=== PATIENT | female | born 1980 | race Caucasian/White ===

== ENCOUNTER 2017-01-26 22:52 | Inpatient (IN) | payer OTHER ==
[~2017-01-26] VITALS: Ht 172.7 cm; Wt 79.4 kg
[~2017-01-26 22:52] MED LIST: ASPIR 8181 MG PO; COUMADIN10 MG PO; DIGITEK250 MCG PO; DILTIAZEM 24HR180 M1 PO; DIVALPROEX SOD250 MG PO; ELIQUIS5 MG PO; FLAGYL500 MG PO; FLUOXETINE HCL20 MG PO; GLUCOPHAGE 850850 MG PO; HUMULIN R100 UNIT/1 INJ; HYDROXYZINE PAM25 MG PO; LASIX40 MG PO; LEVEMIR100 UNIT/1 SQ; LIPITOR TAB 2020 MG PO; LISINOPRIL5 MG PO; METOPROLOL TART50 MG PO; NEURONTIN 300300 MG PO; NITROGLYCERIN0.4 MG SL; OMEPRAZOLE40 MG PO; PHENYTOIN SODI200 MG PO; TOPAMAX100 MG PO; TOPROL XL50 MG PO
[2017-01-26] MEDS ORDERED: DILANTIN 100 M100 MG PO (23:57)
[2017-01-26] MEDS ORDERED: DIVALPROEX SOD500 MG PO (23:58)
[2017-01-26] MEDS ORDERED: NEURONTIN 300300 MG PO (23:58)
[2017-01-26] MEDS ORDERED: LASIX40 MG PO (23:59)
[2017-01-27] MEDS ORDERED: GLUCOPHAGE 850850 MG PO
[2017-01-27] MEDS ORDERED: NITROFURANTOIN100 MG PO (00:01)
[2017-01-27] MEDS ORDERED: NITROSTAT0.4 MG SL (00:02)
[2017-01-27] MEDS ORDERED: PROZAC20 MG PO (00:03)
[2017-01-27] MEDS ORDERED: OMEPRAZOLE40 MG PO (00:03)
[2017-01-27] MEDS ORDERED: COREG 3.125M3.125 MG PO (00:03)
[2017-01-27] MEDS ORDERED: ENTRESTO PO (00:04)
[2017-01-27] MEDS ORDERED: SPIRONOLACTONE25 MG PO (00:05)
[2017-01-27] MEDS ORDERED: LIPITOR TAB 2020 MG PO (00:05)
[2017-01-27] MEDS ORDERED: LEVEMIR FL100 UNIT/1 SC (00:09)
[2017-01-28 04:14] LABS: BUN/CREATININE RATIO 14 (0-10)
[2017-01-29 04:32] LABS: BUN/CREATININE RATIO 18 (0-10)
[2017-01-29] MEDS ORDERED: SOTALOL80 MG PO (14:12)
== END 2017-01-29 15:10 | disposition home or self-care (01) | DRG 309 ==
LOC: PROG CARE 22:52 → CCU 23:56
PROVIDERS: Internal Medicine Infectious Disease; ADMIT Internal Medicine
DX: I48.92 Unspecified atrial flutter (principal); I50.22 Chronic systolic (congestive) heart failure; I48.0 Paroxysmal atrial fibrillation; R07.9 Chest pain, unspecified; I47.1 Supraventricular tachycardia; I42.0 Dilated cardiomyopathy; I20.9 Angina pectoris, unspecified; G40.909 Epilepsy, unspecified, not intractable, without status epilepticus; I07.1 Rheumatic tricuspid insufficiency; R55 Syncope and collapse; E11.9 Type 2 diabetes mellitus without complications; E78.5 Hyperlipidemia, unspecified; I48.2 Chronic atrial fibrillation; F17.210 Nicotine dependence, cigarettes, uncomplicated; R01.1 Cardiac murmur, unspecified; I45.19 Other right bundle-branch block; I73.9 Peripheral vascular disease, unspecified; F32.9 Major depressive disorder, single episode, unspecified; K21.9 Gastro-esophageal reflux disease without esophagitis; Z88.8 Allergy status to other drugs, medicaments and biological substances; Z79.4 Long term (current) use of insulin; Z79.01 Long term (current) use of anticoagulants; Z79.84 Long term (current) use of oral hypoglycemic drugs; Z79.899 Other long term (current) drug therapy; Z82.49 Family history of ischemic heart disease and other diseases of the circulatory system; Z86.73 Personal history of transient ischemic attack (TIA), and cerebral infarction without residual deficits; Z91.14 Patient's other noncompliance with medication regimen; Z87.898 Personal history of other specified conditions
CPT/HCPCS: ECHO; 36415; 71010; 80048; 80053; 80061; 80307; 82550; 82553; 82962; 83036; 83735; 84132; 84439; 84443; 84484; 93005; 93306; C1751; J1650